=== PATIENT | female | born 1935 | race Two or more races ===

== ENCOUNTER 2016-09-04 18:20 | Inpatient (IN) | payer OTHER ==
[2016-09-04] MEDS ORDERED: NS 0.9% 1000 ML* 1,000 ML IV ONE (19:34)
--- NOTE | 2016-09-04 20:13 | RAD ---
Indication: Syncope. Comparison: No relevant prior exams available on the [facility] PACS for comparison. Technique: Noncontrast CT vertex of skull through foramen magnum. Report: 2.9 x 2.1 cm region of encephalomalacia at the RIGHT frontal lobe adjacent to the frontal horn of the lateral ventricle most consistent with a previous infarct. No additional region of fraire matter white matter obscuration evident. Negative for mass effect or intra or extra-axial hemorrhage. Decreased density in the periventricular and subcortical white matter while non-specific is most likely due to chronic microangiopathy. Mild prominence of the cerebral sulci and cerebellar fissures. Proportional enlargement of the ventricles. Unremarkable basal cisterns. Negative for hyperdense MCA sign. Unremarkable orbital contents. No suspicious calvarial or skull base lesion evident. Mucous retention cyst or polyp in the RIGHT maxillary sinus. Negative for paranasal sinus fluid levels. Clear mastoid air spaces. Unremarkable scalp. IMPRESSION: 1. 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 2. Involutional change and stigmata of chronic small vessel ischemic disease. 3. No acute intracranial process evident.
--- NOTE | 2016-09-04 20:20 | ED ---
Davida Byrne Thomas, scribed for Ace Hamilton MD on 09/04/16 at 1934 . GI/ HPI - HPI Summary HPI Summary: pt states was on the toilet for bm and had syncopal episode with subsequent diarrhea - History of Current Complaint Chief Complaint: EDSyncope Time Seen by Provider: 09/04/16 19:31 Stated Complaint: SYNCOPE Pain Intensity: 8 - Allergy/Home Medications Allergies/Adverse Reactions: Allergies Allergy/AdvReac Type Severity Reaction Status Date / Time Amiodarone Allergy Unknown Verified 09/04/16 22:54 Reaction Details Diazepam [From Valium] Allergy Altered Verified 09/04/16 21:19 Mental Status Diclofenac [From Arthrotec] Allergy Unknown Verified 09/04/16 22:54 Reaction Details Doxycycline Allergy Unknown Verified 09/04/16 22:54 Reaction Details Fish Allergy Allergy Hives Verified 09/04/16 21:19 Iodine Allergy Anaphylatic Verified 09/04/16 22:54 Shock Misoprostol [From Arthrotec] Allergy Unknown Verified 09/04/16 22:54 Reaction Details Paroxetine [From Paxil] Allergy Unknown Verified 09/04/16 22:54 Reaction Details Shellfish Allergy Allergy Anaphylatic Verified 09/04/16 21:19 Shock Solifenacin [From Vesicare] Allergy Unknown Verified 09/04/16 22:54 Reaction Details Sulfa Antibiotics Allergy Unknown Verified 09/04/16 22:54 Reaction Details Zolpidem [From Ambien] Allergy Unknown Verified 09/04/16 22:54 Reaction Details Home Medications: Home Medications Acetaminophen [Tylenol] 1 cap PO Q6HR PRN 09/04/16 [History Confirmed 09/04/16] Allopurinol TAB* [Zyloprim 100 MG TAB*] 100 mg PO DAILY 09/04/16 [History Confirmed 09/04/16] Apixaban* [Eliquis] 2.5 mg PO BID 09/04/16 [History Confirmed 09/04/16] Aspirin [Ecotrin Low Strength] 81 mg PO DAILY 09/04/16 [History Confirmed ] Atorvastatin* [Lipitor*] 40 mg PO QPM 09/04/16 [History Confirmed 09/04/16] Bumetanide TAB* [Bumex 1 MG TAB*] 0.5 mg PO DAILY 09/04/16 [History Confirmed ] Bupropion HCl [Bupropion HCl ER] 100 mg PO BID 09/04/16 [History Confirmed 09/04] Cranberry (Vaccinium Macrocarp [Cranberry] 1,000 mg PO DAILY 09/04/16 [History Confirmed 09/04/16] Cyanocobalamin [Vitamin B-12] 5,000 mcg PO DAILY 09/04/16 [History Confirmed ] Ergocalciferol CAP* [Drisdol CAP*] 50,000 cap PO Q7D 09/04/16 [History Confirmed 09/04/16] Levothyroxine Sodium 50 mcg PO DAILY 09/04/16 [History Confirmed 09/04/16] Metoprolol Succinate [Toprol Xl] 100 mg PO DAILY 09/04/16 [History Confirmed ] Mirabegron (NF) [Myrbetriq (NF)] 25 mg PO DAILY 09/04/16 [History Confirmed ] Omeprazole [Prilosec] 20 mg PO DAILY 09/04/16 [History Confirmed 09/04/16] Polyethylene Glycol 1000 1 pow PO DAILY 09/04/16 [History Confirmed 09/04/16] Potassium Chloride [Klor-Con Sprinkle] 10 meq PO BID 09/04/16 [History Confirmed 09/04/16] Sotalol HCl (Afib/Afl) [Sotalol HCl (AF)] 40 mg PO BID 09/04/16 [History Confirmed 09/04/16] Triamcinolone 0.1% CREAM (NF) [Kenalog 0.1% Cream (NF)] 1 applic TOPICAL TID [History Confirmed 09/04/16] PMH/Surg Hx/FS Hx/Imm Hx Infectious Disease History: No Infectious Disease History: Denies: Traveled Outside the [place] in Last 30 Days - Social History Alcohol Use: None Substance Use Type: Reports: None Smoking Status (MU): Former Smoker Review of Systems Constitutional: Negative Eyes: Negative ENT: Negative Cardiovascular: Negative Respiratory: Negative Gastrointestinal: Negative Genitourinary: Negative Musculoskeletal: Negative Skin: Negative Neurological: Negative Psychological: Normal All Other Systems Reviewed And Are Negative: Yes Physical Exam Triage Information Reviewed: Yes Vital Signs On Initial Exam: Initial Vitals Temp Pulse Resp BP Pulse Ox 98.6 F 60 24 135/105 100 06/30/17 18:38 09/04/16 18:38 09/04/16 18:38 09/04/16 18:38 09/04/16 18:38 Vital Signs Reviewed: Yes Appearance: Positive: Thin, Cachectic - mild discomfort Skin: Positive: Warm, Dry Head/Face: Positive: Normal Head/Face Inspection Eyes: Positive: ELISEO ENT: Positive: Hearing grossly normal Neck: Positive: Supple Respiratory/Lung Sounds: Positive: Clear to Auscultation, Breath Sounds Present Cardiovascular: Positive: RRR Abdomen Description: Positive: Soft, Other: - mild diffuse abd tenderness. Negative: Distended, Guarding Bowel Sounds: Positive: Present Musculoskeletal: Positive: Strength/ROM Intact Neurological: Positive: Alert, Oriented to Person Place, Time - Bryanna Coma Scale Coma Scale Total: 15 Diagnostics - Vital Signs Vital Signs Temp Pulse Resp BP Pulse Ox 09/04/16 18:38 98.6 F 60 24 135/105 100 - Laboratory Result Diagrams: 09/04/16 20:53 09/04/16 20:53 Lab Statement: Any lab studies that have been ordered have been reviewed, and results considered in the medical decision making process. GIGU Course/Dx - Diagnoses Provider Diagnoses: Syncope - Physician Notifications Instructed by Provider To: Admit As Inpatient Discharge - Discharge Plan Condition: Fair Disposition: ADMITTED TO [facility] The documentation as recorded by the Davida farrell Thomas accurately reflects the service I personally performed and the decisions made by Alfonso ruiz David, MD.
--- NOTE | 2016-09-04 20:21 | RAD ---
Indication: Syncope, diarrhea. Comparison: No relevant prior exams available on the [facility] PACS for comparison. Technique: Sitting AP and lateral chest views. Report: There is patchy alveolar consolidation in the RIGHT upper lung zone without volume loss concerning for potential pneumonia. Negative for pleural effusions. Cardiomegaly. RIGHT atrial and RIGHT ventricular level pacemaker leads. Unremarkable central pulmonary vasculature and mediastinal contours. Advanced arthropathy at the shoulders. IMPRESSION: Patchy alveolar consolidation at the RIGHT upper lung zone concerning for potential pneumonia. Correlate with clinical assessment. Cardiomegaly without evidence for pulmonary edema.
[2016-09-04 21:00] LABS: Hematocrit 25 % (35-47); Hemoglobin 7.9 g/dl (12.0-16.0); Mean Corpuscular HGB Conc 32 g/dl (31-36); Mean Corpuscular Hemoglobin 27 pg (27-31); Mean Corpuscular Volume 84 fL (80-97); Mean Platelet Volume 8 um3 (7.4-10.4); Red Blood Count 2.98 10^6/ul (4.0-5.4); Red Cell Distribution Width 19 % (10.5-15); White Blood Count 10.2 10^3/ul (3.5-10.8)
[2016-09-04 21:15] LABS: BUN/Creatinine Ratio 23.6 (8-20); Calcium 9.3 mg/dL (8.6-10.3); EGFR African American 52.1 (>60); EGFR Non-African American 40.5 (>60); Globulin 3.9 g/dL (2-4); Magnesium 1.5 mg/dL (1.9-2.7); Total Bilirubin 0.5 mg/dL (0.2-1.0); Total Protein 6.9 g/dL (6.4-8.9)
[2016-09-04 21:16] LABS: Troponin I 0.01 ng/mL (<0.04)
[2016-09-04 22:03] LABS: TSH (Thyroid Stimulating Horm) 18.98 mcIU/mL (0.34-5.60)
[2016-09-04] MEDS ORDERED: Acetaminophen TAB* 325 MG PO PRN (22:08)
[2016-09-04] MEDS ORDERED: Ondansetron INJ* 2 MG/ML VIAL IV PRN (22:20)
[2016-09-05] MEDS: NS 0.9% w/ 20 Meq KCL 1000 ML* 1,000 ML IV SCH ×2 (00:55→11:52)
[2016-09-05 01:29] LABS: Hematocrit 25 % (35-47); Hemoglobin 7.9 g/dl (12.0-16.0)
[2016-09-05 05:27] LABS: Hematocrit 24 % (35-47); Hemoglobin 7.5 g/dl (12.0-16.0)
[2016-09-05] MEDS ORDERED: Levothyroxine TAB* 50 MCG TAB PO SCH (06:00)
[2016-09-05] MEDS: Mirabegron (NF) 25 MG TAB PO SCH (08:31)
[2016-09-05] MEDS: CYANOCOBALAMIN 5000 MCG PO SCH (08:31)
[2016-09-05] MEDS: CRANBERRY PO SCH (08:31)
[2016-09-05] MEDS: Allopurinol TAB* 100 MG PO SCH (08:35)
[2016-09-05] MEDS: Potassium Chlor TAB* 10 MEQ TAB.ER PO SCH ×2 (08:35→20:31)
[2016-09-05] MEDS: Omeprazole CAP* 20 MG PO SCH (08:35)
[2016-09-05] MEDS: Aspirin EC Low Dose* 81 MG TAB.EC PO SCH (08:36)
[2016-09-05] MEDS: buPROPion SR TAB.SR* 100 MG PO SCH ×2 (08:36→20:31)
[2016-09-05] MEDS: Sotalol TAB* 80 MG PO SCH ×2 (08:36→20:32)
[2016-09-05] MEDS: Triamcinolone 0.025% OINT * 15 GM TUBE TOPICAL SCH ×3 (08:37→20:32)
[2016-09-05] MEDS: Apixaban* 2.5 MG TAB PO SCH ×2 (08:37→20:31)
[2016-09-05] MEDS ORDERED: Bumetanide TAB* 1 MG PO SCH (09:00)
[2016-09-05] MEDS ORDERED: Metoprolol Succinate XL TAB* 100 MG PO SCH (09:00)
[2016-09-05 09:03] LABS: BUN/Creatinine Ratio 23.4 (8-20); C Reactive Protein 40.24 mg/L (< 5.00); Calcium 8.8 mg/dL (8.6-10.3); EGFR African American 60.8 (>60); EGFR Non-African American 47.3 (>60)
[2016-09-05 09:52] LABS: Free T4 0.89 ng/dL (0.61-1.12)
[2016-09-05 11:36] LABS: Potassium 3.7 mmol/L (3.5-5.0)
[2016-09-05 12:44] LABS: Hematocrit 26 % (35-47); Hemoglobin 8.1 g/dl (12.0-16.0)
--- NOTE | 2016-09-05 13:44 | RAD ---
CLINICAL HISTORY: Abdominal pain COMPARISON: None TECHNIQUE: Multiple contiguous axial CT scans were obtained of the abdomen and pelvis, without intravenous contrast enhancement. Coronal and sagittal multiplanar reformations are submitted for review. Oral contrast was administered. FINDINGS: The study is limited by the lack of intravenous contrast. This limits evaluation of the solid organs and vasculature. LUNG BASES: The lung bases are clear. LIVER: The liver is normal in shape, size, contour, and attenuation. BILE DUCTS: There is no intrahepatic or extrahepatic biliary dilatation. GALLBLADDER: The gallbladder is not visualized. Surgical clips are noted in the gallbladder fossa. PANCREAS: The pancreas is normal, without mass or ductal dilatation. SPLEEN: Normal in size and appearance. UPPER GI TRACT: Evaluation of the gastrointestinal tract is limited by incomplete gastric distention. The upper GI tract is unremarkable. SMALL BOWEL AND MESENTERY: The small bowel is normal in contour, course, and caliber. There is no obstruction or dilatation. COLON: There is diverticulosis of the sigmoid colon. There is mucosal thickening of the descending colon with stranding of the pericolonic fat, without associated diverticula of the segment ADRENALS: Normal bilaterally. KIDNEYS: The kidneys are normal in shape, size, contour, and axis. There is no hydronephrosis or nephrolithiasis. BLADDER: The bladder is smooth in contour. PELVIC ORGANS: The pelvic organs are not visualized. AORTA: There is calcific atherosclerotic disease of the abdominal aorta and its branches, without aneurysmal dilatation IVC: Unremarkable LYMPH NODES: There are subcentimeter short axis inguinal lymph nodes and retroperitoneal lymph nodes. There is no lymphadenopathy by size criteria ABDOMINAL WALL: There is no evidence for abdominal wall hernia. BONES AND SOFT TISSUES: There is a scoliotic curvature of the spine. Degenerative changes are noted OTHER: None IMPRESSION: 1. THERE IS MUCOSAL THICKENING WITH STRANDING OF THE PERICOLONIC FAT ALONG THE DESCENDING COLON SUGGESTIVE OF COLITIS. 2. THERE IS DIVERTICULOSIS, SEPARATE FROM THE AREA OF COLONIC INFLAMMATORY CHANGE. 3. THERE IS ATHEROSCLEROSIS OF THE ABDOMINAL AORTA. 4. STATUS POST CHOLECYSTECTOMY
--- NOTE | 2016-09-05 14:08 | HP ---
CC: Maggy Khan* HISTORY AND PHYSICAL: DATE OF ADMISSION: 09/04/16 CHIEF COMPLAINT: I fainted. HISTORY OF PRESENT ILLNESS: The patient is an 81-year-old woman who was at a restaurant and was in the bathroom with her daughter when she sat on the toilet and started feeling as if she was going to pass out. Her daughter put her head on a table and she did indeed lose consciousness. Apparently, she was unresponsive for about several minutes and the daughter finally called 911 because she had never seen her mother like that. The patient has had diarrhea for the last several days and in fact was having a bowel movement while I was talking to her today, getting the history. Today, she also developed sudden nausea and vomiting. She has never had that before. She says the bowel movements can be very soft and watery and has several a day. This does not seem to be related to food intake. She, however, has been able to eat food with regularity until she threw up today. She has no recent use of antibiotics that she is aware of. Her belly is hurting from the diarrhea. She does not have fevers or chills. PAST MEDICAL HISTORY: She has a past medical history significant for AICD 5 years ago, AFib, coronary artery disease, status post 2 stents, DVT in her right arm, depression, gout, and hypothyroidism. PAST SURGICAL HISTORY: Significant for a partial hysterectomy, bunionectomy, and foot surgery. ALLERGIES: She has an allergy/adverse reaction to VALIUM, FISH allergy and SHELLFISH allergy. CURRENT MEDICATIONS: Are as follows: 1. Ergocalciferol 50,000 units every 7 days. 2. Triamcinolone cream topically 2 times a day. 3. Vitamin B12 5000 micrograms daily. 4. Sotalol 40 mg twice daily. 5. Potassium chloride 10 mEq twice daily. 6. Polyethylene glycol one powder p.o. daily as needed. 7. Omeprazole 20 mg daily. 8. Myrbetriq 25 mg daily. 9. Metoprolol succinate 100 mg daily. 10. Levothyroxine 50 mcg daily. 11. Eliquis 2.5 mg twice daily. 12. Cranberry 1000 mg daily. 13. Bupropion 100 mg twice daily. 14. Bumex 0.5 mg daily. 15. Lipitor 40 mg in the evening. 16. Aspirin 81 mg daily. 17. Tylenol 1 capsule every 6 hours as needed. 18. Allopurinol 100 mg daily. FAMILY HISTORY: Mother at 82 of heart disease. Father at 76 of heart disease. SOCIAL HISTORY: She quit tobacco 35 years ago, rare alcohol. No recreational drug use. She is a lifelong student and a homemaker. She is a , with two children. Her daughter, Rylee Plata, is her healthcare proxy. REVIEW OF SYSTEMS: A 14-point review of systems was completed with the patient. All pertinent positives and negatives are in the history of present illness, otherwise it is negative. PHYSICAL EXAMINATION GENERAL: A pleasant woman, lying in bed, in no acute distress. VITAL SIGNS: Blood pressure 113/44, pulse ox 100%, respiratory rate 14 breaths per minute, heart rate 63 beats per minute, temperature is 98.6 degrees. HEENT: Normocephalic and atraumatic. Pupils are equal, round, and reactive to light. Moist mucous membranes. NECK: Supple. No JVD, bruits, palpable thyroid or lymphadenopathy. CHEST: Clear to auscultation and percussion bilaterally. CARDIOVASCULAR: S1, S2 appreciated. Regular rate. ABDOMEN: Positive bowel sounds in all 4 quadrants. It is soft, slightly tender , but no rebound, no guarding, no rigidity. EXTREMITIES: No cyanosis, clubbing or edema. +2 peripheral pulses bilaterally. NEUROLOGIC: Alert and oriented x3. Moves all extremities. SKIN: Poor turgor, decreased axillary sweat, no rashes. LABORATORY DATA: Sodium is 137, potassium 3.0, chloride 106, CO2 of 24, BUN 30 , creatinine 1.67, glucose is 94, lactic acid is 2.2. TSH is 18.98. INR is 1.64. Brain CT was interpreted by Radiology as stigmata of right frontal lobe infarct , involutional change, and stigmata of chronic small vessel ischemic disease. No acute intracranial process evident. Chest x-ray shows patchy alveolar consolidation of the right upper lung concerning for pneumonia, correlate with clinical assessment of cardiomegaly, without evidence of pulmonary edema. EKG shows AFib with a rate of 60, moderate ventricular response, normal axis, nonspecific ST-T wave changes. ASSESSMENT AND PLAN: 1. Syncope: I think this is almost certainly secondary to dehydration or volume depletion from her diarrhea that she has been having. She has also had nausea and vomiting contributing to this as well. I will hydrate the patient with normal saline with 20 mEq of K, at 125 cc an hour. I will check a CT of her abdomen and pelvis in case she might have ischemic colitis, especially with her anemia. I will give her zolpidem p.r.n. for her nausea. Check stool for O and P, C and S, fecal leukocytes, and C. diff as it is unclear whether or not she did actually had antibiotics the night before. 2. Anemia: Again, this is not clear if it is chronic. Her MCV is not very concerning, but I will get iron indices, B12, red blood cells, and folate level. I will get a reticulocyte count. I will check her H and H q.6 hours. I will hold off on transfusion at this time because it not evident as to how acute this is. 3. Hypothyroidism: TSH is somewhat high. I will check a free T4 and free T3. Unclear if she has been compliant with her medications or not or if she needs an adjustment or if it has been recently adjusted for that matter. I will hold of on increasing her Synthroid at this point. 4. Gastroesophageal reflux disease: Stable, continue PPI. 5. Atrial fibrillation: Continue Eliquis and metoprolol. 6. Depression: The patient does have evidence of depression when speaking with her. She was recently on Lexapro, now on bupropion. We will continue current medication and monitor. 7. Gout: Stable, continue allopurinol. 8. Deep vein thrombosis prophylaxis: She is on Eliquis. 9. Fluids, Electrolytes, Nutrition: Regular diet if she tolerates. 10. The patient is a full code. TIME SPENT: Over 80 minutes were spent on this H and P, more than 45 minutes of which were spent in direct [id number] contact with the patient in evaluation, physical exam, counseling, and coordination of care. [id number]/[facility] #: [id number] [facility]ai
--- NOTE | 2016-09-05 14:18 | PN ---
Subjective Date of Service: 09/05/16 Interval History: This is an 81 yo female with atrial fibrillation, hypothyroidism and hyperlipidemia who presented after a syncopal episode and c/o abdominal pain. Patient has had multiple bouts of diarrhea and continues to complain of diffuse abd pain. She also states that she has had a recent productive cough. She was noted to be quite anemic at admission, her stool is heme negative and she denies gross blood. Objective Active Medications: Acetaminophen (Tylenol Tab*) 325 mg PO Q6H PRN PRN Reason: PAIN Last Admin: 09/05/16 00:56 Dose: 325 mg Allopurinol (Zyloprim Tab*) 100 mg PO DAILY [facility] Last Admin: 09/05/16 08:35 Dose: 100 mg Apixaban (Eliquis) 2.5 mg PO BID [facility] Last Admin: 09/05/16 08:37 Dose: 2.5 mg Aspirin (Aspirin Ec Low Dose*) 81 mg PO DAILY [facility] Last Admin: 09/05/16 08:36 Dose: 81 mg Atorvastatin Calcium (Lipitor*) 40 mg PO QPM [facility] Bupropion HCl (Wellbutrin Sr Tab*) 100 mg PO BID [facility] Last Admin: 09/05/16 08:36 Dose: 100 mg Potassium Chloride/Sodium Chloride (Ns 0.9% W/ 20 Meq Kcl 1000 Ml*) 1,000 mls @ 125 mls/hr IV PER RATE [facility] Last Admin: 09/05/16 11:52 Dose: 125 mls/hr Levothyroxine Sodium (Synthroid Tab*) 50 mcg PO 0600 [facility] Last Admin: 09/05/16 05:51 Dose: 50 mcg Mirabegron (Myrbetriq (Nf)) 25 mg PO DAILY [facility] Last Admin: 09/05/16 08:31 Dose: Not Given Non-Formulary Medication (Cranberry (Vaccinium Macrocarp [Cranberry]) 1,000 mg PO DAILY [facility] Last Admin: 09/05/16 08:31 Dose: Not Given Non-Formulary Medication (Cyanocobalamin [Vitamin B-12]) 5,000 mcg PO DAILY [facility] Last Admin: 09/05/16 08:31 Dose: Not Given Omeprazole (Prilosec Cap*) 20 mg PO DAILY [facility] Last Admin: 09/05/16 08:35 Dose: 20 mg Ondansetron HCl (Zofran Inj*) 4 mg IV Q4H PRN PRN Reason: NAUSEA Potassium Chloride (Klor Con Er Tab*) 10 meq PO BID [facility] Last Admin: 09/05/16 08:35 Dose: 10 meq Sotalol HCl (Betapace Tab*) 40 mg PO BID [facility] Last Admin: 09/05/16 08:36 Dose: 40 mg Triamcinolone Acetonide (Triamcinolone 0.025% Oint *) 1 applic TOPICAL TID [facility] Last Admin: 09/05/16 12:07 Dose: Not Given Vital Signs: Temp Pulse Resp BP Pulse Ox 98.8 F 66 16 124/60 100 09/05/16 04:44 09/05/16 07:38 09/05/16 08:00 09/05/16 07:38 09/05/16 07:38 Oxygen Devices in Use Now: None Appearance: Elderly female who appears mildly uncomfortable but in NAD Respiratory: Symmetrical Chest Expansion and Respiratory Effort, Clear to Auscultation Cardiovascular: NL Sounds; No Murmurs; No JVD, RRR Abdominal: - - abd soft, diffusely TTP, bowel sounds present Extremities: No Edema Neurological: Alert and Oriented x 3 Result Diagrams: 09/05/16 12:37 09/05/16 10:20 Microbiology and Other Data: Microbiology 09/05/16 06:20 Stool Gross Appearance - Final Stool Stool Lactoferrin - Final Stool Occult Blood (TIMO) - Final 09/05/16 06:20 Stool Gross Appearance - Final Stool C. 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 CT shows evidence of colitis. - Patient Problems (1) Colitis Comment: Likely infectious Neg for C.diff, remainder of stool analysis unremarkable thus far Treat with Zosyn to cover both abdominal and respiratory pathology (2) Pneumonia Comment: RUL infiltrate noted on CXR She has complained of a productive cough as well Possible aspiration with recent vomiting Treat with Zosyn (3) Anemia Comment: Unsure of acuity as there is no old labs available for comparison Stool is heme negative and Hgb is stable on serial monitoring Normocytic, perhaps due to chronic disease Cont to monitor (4) Hypokalemia Comment: Due to GI loss Cont with replacement (5) Hypomagnesemia Comment: Due to GI losses Cont to replace as needed (6) Atrial fibrillation Comment: Rate controlled and anticoagulated with Eliquis (7) Hypothyroidism Comment: TSH is significantly elevated and free T4 on the low side of normal Increase levothyroxine, but some degree of TSH elevation may be due to acute illness and should be rechecked in ~6 weeks (8) Full code status (9) DVT prophylaxis Status and Disposition: Inpatient. Anticipate discharge in 2-3 days
[2016-09-05] MEDS ORDERED: Ciprofloxacin 400MG IVPREMIX(* 400 MG/200 ML BAG IVPB SCH (15:00)
[2016-09-05] MEDS ORDERED: Zosyn per Pharmacy* NOTE FOLLOW UP SCH (15:00)
[2016-09-05] MEDS ORDERED: metroNIDAZOLE IV 500 MG/100ML* 500 MG/100 ML BAG IVPB SCH (15:00)
[2016-09-05] MEDS: Atorvastatin* 40 MG TAB PO SCH (16:46)
[2016-09-05 16:58] LABS: Hematocrit 26 % (35-47); Hemoglobin 7.8 g/dl (12.0-16.0)
[2016-09-05] MEDS: ZOSYN 3.375 GM Q8H per EXTENDED INFUSION IVPB SCH ×2 (20:30)
[2016-09-06] MEDS: NS 0.9% w/ 20 Meq KCL 1000 ML* 1,000 ML IV SCH (02:31)
[2016-09-06] MEDS: ZOSYN 3.375 GM Q8H per EXTENDED INFUSION IVPB SCH ×6 (04:04→20:13)
[2016-09-06] MEDS: Levothyroxine TAB* 75 MCG TAB PO SCH (05:57)
[2016-09-06 06:51] LABS: Hematocrit 24 % (35-47); Hemoglobin 7.5 g/dl (12.0-16.0); Mean Corpuscular HGB Conc 31 g/dl (31-36); Mean Corpuscular Hemoglobin 26 pg (27-31); Mean Corpuscular Volume 85 fL (80-97); Mean Platelet Volume 8 um3 (7.4-10.4); Red Blood Count 2.84 10^6/ul (4.0-5.4); Red Cell Distribution Width 19 % (10.5-15); White Blood Count 10.6 10^3/ul (3.5-10.8)
[2016-09-06 06:55] LABS: BUN/Creatinine Ratio 16.7 (8-20); Calcium 8.4 mg/dL (8.6-10.3); EGFR African American 67.1 (>60); EGFR Non-African American 52.1 (>60); Magnesium 1.2 mg/dL (1.9-2.7); Potassium 4.1 mmol/L (3.5-5.0)
[2016-09-06] MEDS ORDERED: Magnesium Sulf 4 GM/100 ML IV* 4,000 MG/100 ML BAG IVPB ONE (07:08)
[2016-09-06] MEDS: Omeprazole CAP* 20 MG PO SCH (09:28)
[2016-09-06] MEDS: Allopurinol TAB* 100 MG PO SCH (09:29)
[2016-09-06] MEDS: Aspirin EC Low Dose* 81 MG TAB.EC PO SCH (09:29)
[2016-09-06] MEDS: Potassium Chlor TAB* 10 MEQ TAB.ER PO SCH ×2 (09:29→20:15)
[2016-09-06] MEDS: Apixaban* 2.5 MG TAB PO SCH ×2 (09:29→20:13)
[2016-09-06] MEDS: buPROPion SR TAB.SR* 100 MG PO SCH ×2 (09:30→20:13)
[2016-09-06] MEDS: CRANBERRY PO SCH (09:31)
[2016-09-06] MEDS: Mirabegron (NF) 25 MG TAB PO SCH (09:31)
[2016-09-06] MEDS: CYANOCOBALAMIN 5000 MCG PO SCH (09:31)
[2016-09-06] MEDS: Sotalol TAB* 80 MG PO SCH ×2 (09:33→20:13)
--- NOTE | 2016-09-06 10:37 | PN ---
Subjective Date of Service: 09/06/16 Interval History: Patient reports improvement in her abd pain and diarrhea. Still has a slight cough, but no SOB and improved. Appetite is good, ate a full breakfast. Objective Active Medications: Acetaminophen (Tylenol Tab*) 325 mg PO Q6H PRN PRN Reason: PAIN Last Admin: 09/05/16 00:56 Dose: 325 mg Allopurinol (Zyloprim Tab*) 100 mg PO DAILY FOR[facility], [facility] Last Admin: 09/06/16 09:29 Dose: 100 mg Apixaban (Eliquis) 2.5 mg PO BID [facility], [facility]1983 Last Admin: 09/06/16 09:29 Dose: 2.5 mg Aspirin (Aspirin Ec Low Dose*) 81 mg PO DAILY [facility], [facility]1983 Last Admin: 09/06/16 09:29 Dose: 81 mg Atorvastatin Calcium (Lipitor*) 40 mg PO QPM [facility], [facility]1983 Last Admin: 09/05/16 16:46 Dose: 40 mg Bupropion HCl (Wellbutrin Sr Tab*) 100 mg PO BID [facility], [facility] Last Admin: 09/06/16 09:30 Dose: 100 mg Piperacillin Sod/Tazobactam (Sod 3.375 gm/ Sodium Chloride) 100 mls @ 25 mls/ hr IVPB Q8H [facility], [facility]1983 Last Admin: 09/06/16 04:04 Dose: 25 mls/hr Levothyroxine Sodium (Synthroid Tab*) 75 mcg PO 0600 [facility] Last Admin: 09/06/16 05:57 Dose: 75 mcg Mirabegron (Myrbetriq (Nf)) 25 mg PO DAILY [facility], [facility] Last Admin: 09/06/16 09:31 Dose: Not Given Non-Formulary Medication (Cranberry (Vaccinium Macrocarp [Cranberry]) 1,000 mg PO DAILY [facility], [facility] Last Admin: 09/06/16 09:31 Dose: Not Given Non-Formulary Medication (Cyanocobalamin [Vitamin B-12]) 5,000 mcg PO DAILY [facility] Last Admin: 09/06/16 09:31 Dose: Not Given Omeprazole (Prilosec Cap*) 20 mg PO DAILY [facility] Last Admin: 09/06/16 09:28 Dose: 20 mg Ondansetron HCl (Zofran Inj*) 4 mg IV Q4H PRN PRN Reason: NAUSEA Pharmacy Consult (Zosyn Per Pharmacy*) 1 note FOLLOW UP .ZOSYN PER PHARMACY FORMERLY [facility], [facility]1983 Potassium Chloride (Klor Con Er Tab*) 10 meq PO BID [facility] Last Admin: 09/06/16 09:29 Dose: 10 meq Sotalol HCl (Betapace Tab*) 40 mg PO BID [facility] Last Admin: 09/06/16 09:33 Dose: 40 mg Triamcinolone Acetonide (Triamcinolone 0.025% Oint *) 1 applic TOPICAL TID [facility], [facility] Last Admin: 09/05/16 20:32 Dose: 1 applic Vital Signs: Temp Pulse Resp BP Pulse Ox 98.0 F 59 16 129/56 99 09/06/16 07:22 09/06/16 07:22 09/06/16 09:44 09/06/16 07:22 09/06/16 07:22 Oxygen Devices in Use Now: None Appearance: Mildly ill/fatigued appearing, but in NAD Respiratory: Symmetrical Chest Expansion and Respiratory Effort, Clear to Auscultation Cardiovascular: NL Sounds; No Murmurs; No JVD, RRR Abdominal: - - soft, mild TTP, improved Extremities: No Edema Skin: No Rash or Ulcers Neurological: Alert and Oriented x 3 Result Diagrams: 09/06/16 06:30 09/06/16 06:30 Microbiology and Other Data: Microbiology 09/05/16 06:20 Stool Gross Appearance - Final Stool Stool Lactoferrin - Final Stool Occult Blood (TIMO) - Final 09/05/16 06:20 Stool Gross Appearance - Final Stool C. 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 CT shows evidence of colitis. - Patient Problems (1) Colitis Comment: Improving Likely infectious Neg for C.diff, remainder of stool analysis unremarkable thus far Cont Zosyn to cover both abdominal and respiratory pathology (2) Pneumonia Comment: RUL infiltrate noted on CXR She has complained of a productive cough as well Possible aspiration with recent vomiting Cont Zosyn (3) Anemia Comment: Unsure of acuity as there is no old labs available for comparison Stool is heme negative and Hgb is stable on serial monitoring Normocytic, perhaps due to chronic disease Cont to monitor (4) Hypokalemia Comment: Due to GI loss Repleted (5) Hypomagnesemia Comment: Due to GI losses Cont to replace as needed (6) Atrial fibrillation Comment: Rate controlled and anticoagulated with Eliquis (7) Hypothyroidism Comment: TSH is significantly elevated and free T4 on the low side of normal Increase levothyroxine, but some degree of TSH elevation may be due to acute illness and should be rechecked in ~6 weeks (8) Full code status (9) DVT prophylaxis Status and Disposition: Inpatient. Anticipate possible dc tomorrow. Will request PT eval.
[2016-09-06] MEDS: Triamcinolone 0.025% OINT * 15 GM TUBE TOPICAL SCH ×3 (11:56→20:15)
[2016-09-06] MEDS: Atorvastatin* 40 MG TAB PO SCH (17:11)
[2016-09-07] MEDS: ZOSYN 3.375 GM Q8H per EXTENDED INFUSION IVPB SCH ×2 (03:50)
[2016-09-07] MEDS: Levothyroxine TAB* 75 MCG TAB PO SCH (05:13)
[2016-09-07] MEDS: Allopurinol TAB* 100 MG PO SCH (08:26)
[2016-09-07] MEDS: Potassium Chlor TAB* 10 MEQ TAB.ER PO SCH (08:26)
[2016-09-07] MEDS: buPROPion SR TAB.SR* 100 MG PO SCH (08:27)
[2016-09-07] MEDS: Aspirin EC Low Dose* 81 MG TAB.EC PO SCH (08:27)
[2016-09-07] MEDS: Sotalol TAB* 80 MG PO SCH (08:28)
[2016-09-07] MEDS: Apixaban* 2.5 MG TAB PO SCH (08:28)
[2016-09-07] MEDS: Omeprazole CAP* 20 MG PO SCH (08:29)
[2016-09-07] MEDS: CYANOCOBALAMIN 5000 MCG PO SCH (08:29)
[2016-09-07] MEDS: CRANBERRY PO SCH (08:29)
[2016-09-07] MEDS: Mirabegron (NF) 25 MG TAB PO SCH (08:29)
[2016-09-07] MEDS: Triamcinolone 0.025% OINT * 15 GM TUBE TOPICAL SCH (08:31)
[2016-09-07] MEDS ORDERED: Fluconazole 100 MG TAB* TAB PO ONE (08:47)
[2016-09-07 10:43] VITALS: BP 136/62
--- NOTE | 2016-09-08 02:17 | DS ---
CC: Dr. Méndez* DISCHARGE SUMMARY: DATE OF ADMISSION: 09/04/16 DATE OF DISCHARGE: 09/07/16 PRIMARY CARE PROVIDER: Dr. Méndez. DISCHARGING PROVIDER: ADILIA Yang SUPERVISING PHYSICIAN: Abi Shepherd MD * (DICTATED BY ADILIA YANG) PRIMARY DISCHARGE DIAGNOSES: 1. Infectious colitis. 2. Possible pneumonia. 3. Normocytic anemia with hemoglobin of 7.5 that appears to be stable, unsure of the acuity of this. 4. Hypokalemia - resolved. 5. Hypomagnesemia - resolved. SECONDARY DISCHARGE DIAGNOSES: 1. Atrial fibrillation, which is rate controlled and anticoagulated with Eliquis. 2. Hypothyroidism with elevated TSH requiring followup TSH monitoring in approximately 6 weeks. DISCHARGE MEDICATIONS: 1. Allopurinol 100 mg p.o. daily. 2. Augmentin 875/125 one tablet p.o. twice daily x7 days. 3. Eliquis 2.5 mg p.o. twice daily. 4. Aspirin 81 mg p.o. daily. 5. Atorvastatin 40 mg p.o. daily. 6. Bumex 0.5 mg p.o. daily. 7. Bupropion 100 mg p.o. twice daily. 8. Cranberry 1000 mg p.o. daily. 9. Vitamin B12 5000 mcg p.o. daily. 10. Vitamin D2 50,000 units p.o. weekly. 11. Levothyroxine 75 mcg p.o. daily. 12. Metoprolol succinate 100 mg p.o. daily. 13. Myrbetriq 25 mg p.o. daily. 14. Metoprolol 20 mg p.o. daily. 15. MiraLAX p.o. daily as needed for constipation. 16. Potassium chloride 10 mEq p.o. twice daily. 17. Sotalol 40 mg p.o. twice daily. 18. Triamcinolone cream 0.1% supplied topically 3 times daily as needed. MEDICATION CHANGES: 1. Augmentin x7 days. 2. Increase levothyroxine to [address] of the brain shows evidence of an old right frontal lobe infarct and involutional changes and stigmata of chronic small vessel ischemic disease but no acute process. 2. Chest x-ray shows patchy consolidation in the right upper lung zone concerning for potential pneumonia. 3. CT of the abdomen and pelvis shows mucosal thickening with stranding of the pericolonic fat along the descending colon suggestive of colitis with diverticulosis separate from the area of inflammatory change. No evidence of abscess or other acute process. HOSPITAL COURSE: This is an 81-year-old female with atrial fibrillation, coronary artery disease, history of prior DVT, depression, gout and hypothyroidism, who presented to the emergency department after a syncopal episode. She was using the rest room when she felt lightheaded, and then lost consciousness. She was reportedly unresponsive for several minutes. She had been having diarrhea for the last several days prior to admission and had one episode of nausea and vomiting. She was complaining of diffuse abdominal pain accompanying for complaints of diarrhea. She had not had any recent antibiotic use. No documented fevers at home. Initial labs demonstrated an anemia with hemoglobin of 7.9, which is normocytic, and we did not have prior labs to compare it to help with understanding the acuity of that. Her initial chemistries showed some mild renal impairment, hypokalemia, and hypomagnesemia, as well as a TSH of nearly 19. Due to her complaints of abdominal pain and diarrhea, CT of the abdomen and pelvis was completed, which demonstrated signs consistent with colitis but she also had a right upper lobe infiltrate noted on her initial chest x-ray that was suggestive of a possible pneumonia and patient stated that she had been having a mild but productive cough. Stool testing was negative for C.diff. For these reasons, the patient was started on Zosyn for empiric treatment of colitis as well as pneumonia that could represent an aspiration given her recent GI illness. The patient's symptoms improved significantly after antibiotics were initiated. Electrolytes were repleted as necessary. The patient's diarrhea nearly fully resolved as did her abdominal pain. She still complains of mild cough that seemed to improve during her hospital stay and she was not hypoxic nor did she have complaints of dyspnea. She was evaluated by physical therapy prior to discharge. Her functional status appears to be quite good. DISPOSITION AND FOLLOWUP PLAN: The patient is being discharged to home where she lives alone but has private aides in the home frequently and her daughter lives nearby and acts as her primary caregiver. Recommend an additional 7 days of Augmentin for treatment of her colitis and possible pneumonia. Would also recommend followup regarding her anemia. Her hemoglobin was stable during her hospital stay with no evidence of bleeding and her stool was heme negative. The anemia is normocytic and very well could be chronic. She did not receive blood transfusion. She also requires a followup chest x-ray to ensure resolution of her right upper lobe infiltrate and a repeat TSH in 6 to 8 weeks. Dose of her levothyroxine has been increased as described above. ADILIA YANG [id number]/[facility] #: [id number] HOSPITALTai
== END 2016-09-07 10:25 | disposition home or self-care (01) | DRG 249 ==
LOC: ED 18:20 → MED 22:20
PROVIDERS: ADMIT Internal Medicine; ATTEND Internal Medicine
DX: A09 Infectious gastroenteritis and colitis, unspecified (principal); J18.9 Pneumonia, unspecified organism; I48.91 Unspecified atrial fibrillation; E86.9 Volume depletion, unspecified; D64.9 Anemia, unspecified; E86.0 Dehydration; E83.42 Hypomagnesemia; E87.6 Hypokalemia; E03.9 Hypothyroidism, unspecified; M10.9 Gout, unspecified; F32.9 Major depressive disorder, single episode, unspecified; I25.10 Atherosclerotic heart disease of native coronary artery without angina pectoris; Z95.5 Presence of coronary angioplasty implant and graft; Z79.01 Long term (current) use of anticoagulants; Z95.810 Presence of automatic (implantable) cardiac defibrillator; Z88.5 Allergy status to narcotic agent; Z91.013 Allergy to seafood; Z79.82 Long term (current) use of aspirin; Z79.1 Long term (current) use of non-steroidal anti-inflammatories (NSAID); Z79.899 Other long term (current) drug therapy; Z82.49 Family history of ischemic heart disease and other diseases of the circulatory system; Z87.891 Personal history of nicotine dependence; K21.9 Gastro-esophageal reflux disease without esophagitis
CPT/HCPCS: 36415; 70450; 71020; 74176; 80048; 80053; 82272; 83605; 83630; 83735; 84145; 84439; 84443; 84484; 85014; 85018; 85025; 85610; 86140; 87177; 87209; 87328; 87329; 87493; 93005; A9270-GY; J2543

== ENCOUNTER 2016-10-16 19:27 | Emergency (ER) | payer OTHER ==
[2016-10-16 20:31] VITALS: BP 118/59
--- NOTE | 2016-10-16 20:51 | ED ---
Upper Extremity Pain - HPI Summary HPI Summary: 81 yr old female with swelling, bruising, redness, and pain that is achey and 2/ 10. Location is right upper arm from the elbow to the right shoulder. Symptoms are worse with shrugging shoulders. Denies fever or chills. She does not feel sick. She denies trauma. She has no other complaints. Onset of symptoms yesterday. She is on eloquis for Afib. She has had a clot in her right arm before. - History of Current Complaint Chief Complaint: UCSkin Stated Complaint: RASH RIGHT ARM Time Seen by Provider: 10/16/16 20:35 - Allergies/Home Medications Allergies/Adverse Reactions: Allergies Allergy/AdvReac Type Severity Reaction Status Date / Time Amiodarone Allergy Unknown Verified 10/16/16 20:09 Reaction Details Diazepam [From Valium] Allergy Altered Verified 10/16/16 20:09 Mental Status Diclofenac [From Arthrotec] Allergy Unknown Verified 10/16/16 20:09 Reaction Details Doxycycline Allergy Unknown Verified 10/16/16 20:09 Reaction Details Fish Allergy Allergy Hives Verified 10/16/16 20:09 Iodine Allergy Anaphylatic Verified 10/16/16 20:09 Shock Lactose Intolerance (GI) Allergy Unknown Verified 10/16/16 20:09 Reaction Details Misoprostol [From Arthrotec] Allergy Unknown Verified 10/16/16 20:09 Reaction Details Paroxetine [From Paxil] Allergy Unknown Verified 10/16/16 20:09 Reaction Details Shellfish Allergy Allergy Anaphylatic Verified 10/16/16 20:09 Shock Solifenacin [From Vesicare] Allergy Unknown Verified 10/16/16 20:09 Reaction Details Sulfa Antibiotics Allergy Unknown Verified 10/16/16 20:09 Reaction Details Zolpidem [From Ambien] Allergy Unknown Verified 10/16/16 20:09 Reaction Details PMH/Surg Hx/FS Hx/Imm Hx Endocrine/Hematology History: Reports: Hx Thyroid Disease Respiratory History: Reports: Hx Asthma Sensory History: Reports: Hx Contacts or Glasses Denies: Hx Hearing Aid Opthamlomology History: Reports: Hx Contacts or Glasses - Surgical History Surgery Procedure, Year, and Place: Pacemaker/defib Infectious Disease History: No Infectious Disease History: Denies: Traveled Outside the [place] in Last 30 Days - Social History Alcohol Use: None Substance Use Type: Reports: None Smoking Status (MU): Former Smoker Review of Systems Negative: Fever, Chills Positive: Edema - right upper arm Positive: Rash - right upper arm, Bruising - right upper arm Neurological: Negative Psychological: Normal All Other Systems Reviewed And Are Negative: Yes Physical Exam Triage Information Reviewed: Yes Vital Signs On Initial Exam: Initial Vitals Temp Pulse Resp BP Pulse Ox 97.8 F 72 18 118/59 100 10/16/16 20:14 10/16/16 20:14 10/16/16 20:14 10/16/16 20:14 10/16/16 20:14 Vital Signs Reviewed: Yes Appearance: Positive: Well-Appearing, No Pain Distress Skin: Positive: Other - there is bruising and reddish color to the right upper arm from proximal to the elbow to the right shoulder. Head/Face: Positive: Normal Head/Face Inspection Eyes: Positive: EOMI ENT: Positive: Normal ENT inspection Dental: Positive: Other - no bleeding Neck: Positive: Supple Cardiovascular: Positive: Normal, RRR. Negative: Murmur Abdomen Description: Positive: Nontender Musculoskeletal: Positive: Other - limited range of motion of her shoulders which is baseline for her per patient and daughter Neurological: Positive: Normal, Sensory/Motor Intact, Alert, Oriented to Person Place, Time, CN Intact II-III Psychiatric: Positive: Normal Diagnostics - Vital Signs Vital Signs Temp Pulse Resp BP Pulse Ox 10/16/16 20:14 97.8 F 72 18 118/59 100 - Laboratory Lab Statement: Any lab studies that have been ordered have been reviewed, and results considered in the medical decision making process. Course/Dx - Course Course Of Treatment: 81 yr old female with swollen arm and change in color. recommend go to the ER by ambulance for further eval. they sign out AMA and said they will drive themselves. - Diagnoses Provider Diagnoses: Arm edema, Arm bruise Discharge - Discharge Plan Condition: Good Disposition: AGAINST MEDICAL ADVICE
== END 2016-10-16 20:52 | disposition left against medical advice (07) ==
LOC: UCCORT 19:27
DX: R60.0 Localized edema (principal); S40.021A Contusion of right upper arm, initial encounter; X58.XXXA Exposure to other specified factors, initial encounter; Y93.9 Activity, unspecified; Y92.9 Unspecified place or not applicable; Z86.718 Personal history of other venous thrombosis and embolism; Z79.01 Long term (current) use of anticoagulants; E07.9 Disorder of thyroid, unspecified; J45.909 Unspecified asthma, uncomplicated; Z95.0 Presence of cardiac pacemaker; Z87.891 Personal history of nicotine dependence
CPT/HCPCS: 99212; G0463